=== PATIENT | male | born 1950 | race Two or more races ===

== ENCOUNTER 2022-09-11 09:17 | Emergency (ER) | payer OTHER ==
[~2022-09-11] VITALS: Ht 177.8 cm; Wt 88.5 kg
[~2022-09-11 09:17] MED LIST: NO TOMA MEDICAMENTOS
[2022-09-11] MEDS ORDERED: ROSUVASTATIN CA10 MG PO (09:42)
== END 2022-09-11 12:17 | disposition home or self-care (01) ==
LOC: ER 09:17
DX: M54.50 Low back pain, unspecified (principal); M48.56XS Collapsed vertebra, not elsewhere classified, lumbar region, sequela of fracture; I10 Essential (primary) hypertension; E78.5 Hyperlipidemia, unspecified

== ENCOUNTER → 2025-05-26 | Emergency (ER) | payer OTHER ==
[~2025-05-26] VITALS: Ht 177.8 cm; Wt 80.7 kg
[~2025-05-26] MED LIST changes: +ALTACE1.25 MG; +CEFTRIAXONE SODIUM 1,000 MG VIAL IM ONE; +DIPHTH,PERTUSS(ACELL),TET VAC 0.5 ML SYRINGE IM STA; +KETOROLAC TROMETHAMINE 60 MG VIAL IM ONE; +ROSUVASTATIN CA10 MG PO; +TETANUS & DIPHTHERIA TOX,ADULT 0.5 ML VIAL IM ONE
[2025-05-26 11:46] LABS: URINE APPEARANCE Clear; URINE BILIRRUBIN Small (NEGATIVE); URINE BLOOD Small; URINE COLOR Dark Yellow; URINE GLUCOSE Negative (NEGATIVE); URINE KETONE 15 (NEGATIVE); URINE LEUKOCYTE Trace; URINE NITRATE Negative; URINE PROTEIN 30 (NEGATIVE); URINE UROBILINOGEN 1.0 E.U./dl
[2025-05-26 11:49] LABS: URINE BACTERIA 19.1 uL (0.0-1933); URINE CAST 17.45 uL (0.0-1.40); URINE EPITHELIAL CELLS 11.9 uL (0.0-38.8); URINE RBC 35.1 uL (0.0-20.8); URINE WBC 13.3 uL (0.0-23.2)
[2025-05-26 12:00] LABS: URINE MUCUS HEAVY
[2025-05-26 14:36] LABS: BASO % 0.7 % (0.1-1.2); EOS # 0.34 (0.04-0.54); EOS % 2.5 % (0.7-7.0); LYMPH # 2.56 (1.18-3.74); LYMPH % 19.0 % (19.3-53.1); MEAN PLATELET VOLUME 10.10 fl (9.4-12.4); MONO # 1.70 (0.24-0.82); NEUT # 8.69 (1.56-6.13); NEUT % 64.8 % (34.0-71.1); RED CELL DISTRIBUTION WIDTH 12.2 % (11.6-14.4)
[2025-05-26 14:48] LABS: MONO % 12.6 % (4.7-12.5)
[2025-05-26 15:15] LABS: ALT/SGPT 27.0 U/L (12-78); AST/SGOT 38.0 U/L (15-37); BILIRUBIN TOTAL 1.66 mg/dL (0.3-1.2); BUN CREA RATIO 20.0 (7.0-25.0); CREATININE SERUM 1.71 mg/dL (0.70-1.30); GFR 39.01; GLOBULINA 3.3 G/DL (2.4-3.5); GLUCOSE FASTING 109.0 mg/dL (65-100); OSMOLALITY SERUM 286.0 MOSM/KG (275-295)
== END | disposition left against medical advice (07) ==
LOC: ER 08:12
PROVIDERS: General Practice
DX: S72.092A Other fracture of head and neck of left femur, initial encounter for closed fracture (principal); S30.22XA Contusion of scrotum and testes, initial encounter; S60.212A Contusion of left wrist, initial encounter; S70.02XA Contusion of left hip, initial encounter; V29.99XA Rider (driver) (passenger) of other motorcycle injured in unspecified traffic accident, initial encounter; Y93.89 Activity, other specified; Y92.413 State road as the place of occurrence of the external cause; Y99.9 Unspecified external cause status; I10 Essential (primary) hypertension